=== PATIENT | male | born 1985 | race African-American/Black ===

== ENCOUNTER 2023-04-05 08:04 | Emergency (ER) | payer MEDICAID ==
[~2023-04-05] VITALS: Ht 167.6 cm; Wt 67.0 kg
[2023-04-05 08:10] VITALS: TEMP 98.2; O2SAT 100
[2023-04-05] MEDS ORDERED: NAPR-681 MT (08:49)
[2023-04-05] MEDS ORDERED: AMOX1TAB16 MT (08:49)
[2023-04-05 09:44] VITALS: BP 141/102; PULSE 76; RESP 14
[2023-04-05] MEDS: KETOROLAC 15MG/ML VIAL IM ONE (09:44)
== END 2023-04-05 11:20 | disposition home or self-care (01) ==
LOC: ER 08:04
DX: K04.7 Periapical abscess without sinus (principal); Z91.013 Allergy to seafood
CPT/HCPCS: 96372; 99283; J1885; Z7610